=== PATIENT | female | born 1960 | race Caucasian/White ===

== ENCOUNTER → 2020-11-26 | Outpatient (CLI) | payer OTHER ==
[~2020-11-26] MED LIST: ASPIRIN81 MG PO
== END ==
LOC: KOH-I 12:17
DX: M54.2 Cervicalgia (principal); M54.9 Dorsalgia, unspecified
CPT/HCPCS: 72040; 72070; 72100

== ENCOUNTER → 2020-12-07 | Outpatient (CLI) | payer OTHER | LOC: HEART 5 09:15 | DX: U07.1 COVID-19 (principal) | CPT/HCPCS: 94010 ==

== ENCOUNTER → 2021-05-31 | Outpatient (CLI) | payer OTHER ==
[~2021-05-31] VITALS: Ht 160 cm; Wt 59.0 kg
== END ==
LOC: OPSV 05-24 08:00
DX: R53.83 Other fatigue (principal); E55.9 Vitamin D deficiency, unspecified
CPT/HCPCS: 82533; 96375; J0834